=== PATIENT | male | born 1960 ===

== ENCOUNTER 2018-08-06 16:07 | Emergency (ER) | payer MEDICAID ==
[2018-08-06 16:22] VITALS: RESP 18; TEMP 98
[2018-08-06 17:28] LABS: BASO # 0.1 K/uL (0.0-0.2); BASO % 0.4 % (0.0-2.0); HEMOGLOBIN 13.3 g/dL (12.0-18.0); LYMPH # 0.9 K/uL (1.0-4.3); LYMPH % 6.2 % (20.0-40.0); MEAN CELL VOLUME 90.3 fL (80.0-94.0); MEAN CORPUSCULAR HEMOGLOBIN 29.6 pg (27.0-31.0); MEAN CORPUSCULAR HGB CONC 32.8 g/dL (33.0-37.0); MEAN PLATELET VOLUME 9.6 fL (7.2-11.7); NEUT % 86.4 % (50.0-75.0); PLATELET COUNT 299 K/uL (130-400); RED CELL DISTRIBUTION WIDTH 11.8 % (11.5-14.5); WHITE BLOOD COUNT 13.9 K/uL (4.8-10.8)
[2018-08-06 17:31] LABS: SQUAMOUS EPITHIAL < 1 /hpf (0-5); URINE BILIRUBIN NEGATIVE (NEGATIVE); URINE BLOOD NEGATIVE (NEGATIVE); URINE CLARITY Clear (Clear); URINE COLOR Yellow (YELLOW); URINE GLUCOSE (UA) NORMAL (Normal); URINE LEUKOCYTE ESTERASE NEG Leu/uL (Negative); URINE PROTEIN NEGATIVE (NEGATIVE); URINE UROBILINOGEN NORMAL mg/dL (0.2-1.0)
[2018-08-06 17:42] LABS: ALB/GLOB RATIO 1.3 (1.0-2.1)
[2018-08-06 17:45] LABS: ALBUMIN 4.6 g/dL (3.5-5.0); ALT/SGPT 125 U/L (21-72); AST/SGOT 41 U/L (17-59); BLOOD UREA NITROGEN 16 mg/dL (9-20); CALCIUM 9.1 mg/dl (8.6-10.4); GFR NON-AFRICAN AMERICAN > 60; LIPASE 32 U/L (23-300)
[2018-08-06] MEDS ORDERED: Iodixanol 320 MG/ML 100 ML BOTTLE IV ONE (17:47)
--- NOTE | 2018-08-06 17:52 | C.PDOC ---
History Of Present Illness 58 y/o male comes in to ED complaining of right lower abdominal pain, associated with diarrhea since last night. Patient denies nausea, vomiting, fever, chills, or urinary symptoms. Has no other complaints at this time. Time Seen by Provider: 08/06/18 16:54 Chief Complaint (Nursing): Abdominal Pain History Per: Patient History/Exam Limitations: no limitations Onset/Duration Of Symptoms: Days Current Symptoms Are (Timing): Still Present Past Medical History Reviewed: Historical Data, Nursing Documentation, Vital Signs Vital Signs: Last Vital Signs Temp 98 F 08/06/18 16:20 Pulse 71 08/06/18 16:20 Resp 18 08/06/18 16:20 BP 119/74 08/06/18 16:20 Pulse Ox 99 08/06/18 16:20 - Medical History PMH: HTN Family History: States: No Known Family Hx - Social History Hx Alcohol Use: No Hx Substance Use: No Review Of Systems Except As Marked, All Systems Reviewed And Found Negative. Gastrointestinal: Positive for: Abdominal Pain, Diarrhea Physical Exam - Physical Exam Appears: Non-toxic, No Acute Distress Skin: Normal Color, Warm, Dry Head: Atraumatic, Normacephalic Eye(s): bilateral: Normal Inspection Oral Mucosa: Moist Neck: Supple Cardiovascular: Rhythm Regular, No Murmur Respiratory: Normal Breath Sounds, No Rales, No Rhonchi, No Wheezing Gastrointestinal/Abdominal: Soft, No Tenderness Extremity: Bilateral: Atraumatic, Normal Color And Temperature, Normal ROM Neurological/Psych: Oriented x3, Normal Speech ED Course And Treatment - Laboratory Results Result Diagrams: 08/06/18 17:25 08/06/18 17:25 Lab Results: Total Bilirubin 1.2 mg/dL (0.2-1.3) 08/06/18 17:25 AST 41 U/L (17-59) 08/06/18 17:25 ALT 125 U/L (21-72) H 08/06/18 17:25 Alkaline Phosphatase 79 U/L (38-126) 08/06/18 17:25 Total Protein 8.2 g/dL (6.3-8.3) 08/06/18 17:25 Albumin 4.6 g/dL (3.5-5.0) 08/06/18 17:25 Globulin 3.6 gm/dL (2.2-3.9) 08/06/18 17:25 Albumin/Globulin Ratio 1.3 (1.0-2.1) 08/06/18 17:25 Lipase 32 U/L (23-300) 08/06/18 17:25 Urine Color Yellow (YELLOW) 08/06/18 17:25 Urine Clarity Clear (Clear) 08/06/18 17:25 Urine pH 5.0 (5.0-8.0) 08/06/18 17:25 Ur Specific [place] 1.029 (1.003-1.030) 08/06/18 17:25 Urine Protein Negative mg/dL (NEGATIVE) 08/06/18 17:25 Urine Glucose (UA) Normal mg/dL (Normal) 08/06/18 17:25 Urine Ketones Negative mg/dL (NEGATIVE) 08/06/18 17:25 Urine Blood Negative (NEGATIVE) 08/06/18 17:25 Urine Nitrate Negative (NEGATIVE) 08/06/18 17:25 Urine Bilirubin Negative (NEGATIVE) 08/06/18 17:25 Urine Urobilinogen Normal mg/dL (0.2-1.0) 08/06/18 17:25 Ur Leukocyte Esterase Neg Tiffany/uL (Negative) 08/06/18 17:25 Urine WBC (Auto) 1 /hpf (0-5) 08/06/18 17:25 Urine RBC (Auto) < 1 /hpf (0-3) 08/06/18 17:25 Ur Squamous Epith Cells < 1 /hpf (0-5) 08/06/18 17:25 O2 Sat by Pulse Oximetry: 99 (RA) Pulse Ox Interpretation: Normal - CT Scan/US Abd/Pel CT Other Rad Studies (CT/US): Read By Radiologist, Radiology Report Reviewed CT/US Interpretation: FINDINGS: LUNG BASES: The lung bases appear clear. No pleural effusions are seen. LIVER: Unremarkable. GALLBLADDER AND BILE DUCTS: Gallbladder has been surgically removed. PANCREAS: Unremarkable. SPLEEN: Unremarkable. ADRENAL GLANDS: Unremarkable. KIDNEYS, URETERS, AND BLADDER: The kidneys appear within normal limits. Incidental tiny cyst within the left kidney. There is no hydronephrosis or hydroureter. No urinary calculi are seen. Prostate gland moderately enlarged. STOMACH AND BOWEL: The stomach appears within normal limits. There are some fluid-filled mildly dilated loops of small bowel. There appears to be mild thickening of the wall of the colon particularly the ascending and distal and sigmoid colon likely related to colitis. Clinical correlation advised. There is no suspicious mass or lymphadenopathy. APPENDIX: No evidence of acute appendicitis on CT examination. PERITONEUM: No free fluid. No free air. LYMPH NODES: No lymphadenopathy is evident. VASCULATURE: No evidence of abdominal aortic aneurysm. BONES: No aggressive appearing osseous lesion. No acute osseous pathology evident. IMPRESSION: Status post cholecystectomy. There appears to be mild thickening of the wall of the colon particularly the ascending and descending and sigmoid colon likely related to colitis. Fluid-filled loops of small bowel. Moderately enlarged prostate gland. Close clinical correlation is advised. Medical Decision Making Medical Decision Making: Impression: Abdominal Pain Plan: --Abd/Pel CT --Labs --Pepcid 20 mg IV --Toradol 30 mg IV --UA Disposition Counseled Patient/Family Regarding: Studies Performed, Diagnosis, Need For Followup, Rx Given - Disposition Disposition: HOME/ ROUTINE Disposition Time: 19:11 Condition: STABLE Additional Instructions: follow up with your doctor within 2 days call to make an appointment take medications as prescribed return to ER if symptoms worsens or progress Prescriptions: Ciprofloxacin HCl [Cipro] 500 mg PO BID #20 tab Famotidine [Pepcid] 20 mg PO BID #20 tab Metronidazole [Flagyl] 500 mg PO BID #20 tablet Naproxen [Naprosyn] 500 mg PO BID PRN #16 tab PRN Reason: Pain, Moderate (4-7) Ondansetron ODT [Zofran ODT] 4 mg PO TID PRN #12 odt PRN Reason: Nausea/Vomiting Instructions: Colitis Forms: [facility] ([place]), General Discharge Instructions, Work Excuse - Clinical Impression Clinical Impression: Colitis - Scribe Statement The provider has reviewed the documentation as recorded by the Desirae Garcia Provider Attestation: All medical record entries made by the Desirae were at my direction and personally dictated by me. I have reviewed the chart and agree that the record accurately reflects my personal performance of the history, physical exam, medical decision making, and the department course for this patient. I have also personally directed, reviewed, and agree with the discharge instructions and disposition.
[2018-08-06 17:56] LABS: BANDS 2 % (0-2); BASOPHIL 1 % (0-2); LYMPHOCYTE 6 % (20-40); MONOCYTE 8 % (0-10); NEUTROPHIL 82 % (50-75); PLATELET ESTIMATE NORMAL (NORMAL); REACTIVE LYMPHOCYTES 1 % (0-0); TOTAL CELLS COUNTED 100
[2018-08-06 18:01] LABS: ANISOCYTOSIS SLIGHT
[2018-08-06 18:02] LABS: LARGE PLATELETS PRESENT; TOXIC GRANULATION PRESENT
[2018-08-06 20:10] VITALS: BP 135/82; PULSE 66; O2SAT 98
--- NOTE | 2018-08-07 08:38 | CT ---
CT abdomen and pelvis HISTORY: Abdominal pain. COMPARISON: None available. Technique: Multiple contiguous axial images were performed through the abdomen and pelvis with the use of intravenous contrast. Subsequently, sagittal and coronal reformatted images were obtained. This CT exam was performed using one or more of the following dose reduction techniques: Automated exposure control, adjustment of the mA and/or kV according to patient size, and/or use of iterative reconstruction technique. Findings: Mild atelectasis within the right middle lobe. Valvular calcifications in the heart. Mild intrahepatic biliary ductal dilatation. Prior cholecystectomy. Splenule. Adrenal glands are preserved. Pancreas is preserved. Small hiatal hernia. Few mildly distended loops of small bowel seen within the upper and mid abdomen. Right kidney: Mild perinephric fat stranding. Left Kidney: Mild perinephric fat stranding. Midpole 7 millimeter low-attenuation lesion, too small to adequately characterize. Underdistended urinary bladder. Heterogeneous and prominent prostate with calcifications. Focal thickening of the colon diffusely suggestive for a colitis likely secondary to acute infectious and or inflammatory changes. Clinical correlation. Appendix is visualized and within normal limits. Small fat containing inguinal hernias. Bilateral scrotal hydroceles are noted. Few shotty para-aortic and mesenteric lymph nodes. Atherosclerotic calcification and plaque noted within the aorta. Degenerative changes in the spine. Impression: Focal thickening of the colon diffusely suggestive for a colitis likely secondary to acute infectious and or inflammatory changes. Clinical correlation. Heterogeneous and prominent prostate with calcifications. Additional findings as above. A preliminary report was generated at 6:27 p.m. on 08/06/[address] Buck Hsu from [employer].
== END 2018-08-06 19:41 | disposition home or self-care (01) ==
LOC: C.ER 16:07
DX: K52.9 Noninfective gastroenteritis and colitis, unspecified (principal)
CPT/HCPCS: 74177; 80053; 81001; 83690; 85025; 96374; 96375; 99284; J1885; Q9967